=== PATIENT | male | born 1990 | race Caucasian/White ===

== ENCOUNTER 2020-08-18 16:58 | Outpatient (REF) | payer OTHER, SELFPAY | END 2020-08-18 16:59 | disposition home or self-care (01) | LOC: HO.HOSX 16:58 | PROVIDERS: Visit Provider Orthopaedic Surgery | DX: Z13.89 Encounter for screening for other disorder (principal) ==

== ENCOUNTER → 2020-08-27 10:48 | Outpatient (BNVA) | payer OTHER, SELFPAY | PROVIDERS: Visit Provider Orthopaedic Surgery | DX: M79.641 Pain in right hand (principal) | CPT/HCPCS: 99202 ==

== ENCOUNTER 2020-09-08 08:07 | Outpatient (REF) | payer OTHER, SELFPAY ==
--- NOTE | ~2020-09-08 | XR_ITS ---
EXAMINATION: XR HAND, RIGHT CLINICAL INFORMATION: Pain COMPARISON: None TECHNIQUE: PA, lateral, and oblique views of the right hand. FINDINGS: The bones and soft tissues are normal. No fracture. Alignment is anatomic. Joint spaces are maintained. No erosions or soft tissue calcifications. XR/XR hand RT min 3V IMPRESSION: Normal right hand.
[2020-09-08 09:15] LABS: Estimated Average Glucose 88 mg/dL; Hemoglobin A1c % 4.7 %
[2020-09-08 09:21] LABS: Alanine Aminotransferase 49 U/L (0-40); Albumin Level 4.4 g/dL (3.5-5.0); Alkaline Phosphatase 72 U/L (39-117); Anion Gap 11 (12-20); Aspartate Amino Transferase 25 U/L (5-37); Bilirubin Total 2.7 mg/dL (0.0-1.0); Blood Urea Nitrogen 14 mg/dL (9-16); Calcium 9.1 mg/dL (8.4-10.2); Carbon Dioxide 29 mmol/L (22-29); Chloride 104 mmol/L (96-108); Estimated Glomerular Filt Rate > 60; Glucose Fasting 105 mg/dL (60-99); Potassium 4.2 mmol/L (3.3-5.1); Sodium 140 mmol/L (135-145)
[2020-09-08 09:35] LABS: TSH reflex Free T4 1.28 uIU/mL (0.32-4.0)
== END 2020-09-08 08:08 | disposition home or self-care (01) ==
LOC: HO.LAB 08:07
PROVIDERS: Absent Provider Orthopaedic Surgery; PCP Physician Assistant; Visit Provider Physician Assistant
DX: M79.641 Pain in right hand (principal); Z13.1 Encounter for screening for diabetes mellitus; Z13.29 Encounter for screening for other suspected endocrine disorder
CPT/HCPCS: 36415; 73130; 80053; 83036; 84443

== ENCOUNTER 2020-09-09 09:41 | Outpatient (REF) | payer OTHER, SELFPAY | END 2020-09-09 09:42 | disposition home or self-care (01) | LOC: HO.HOSX 09:41 | PROVIDERS: Visit Provider Orthopaedic Surgery | DX: Z13.89 Encounter for screening for other disorder (principal) ==